=== PATIENT | female | born 1985 | race Native Hawaiian/Other Pacific Islander ===

== ENCOUNTER 2022-05-26 12:30 | Outpatient (RCR) | payer BC, SELFPAY | END 2022-06-23 16:21 | disposition home or self-care (01) | PROVIDERS: Visit Provider Orthopaedic Surgery | DX: M25.572 Pain in left ankle and joints of left foot (principal); R26.9 Unspecified abnormalities of gait and mobility; Z51.89 Encounter for other specified aftercare | CPT/HCPCS: 97110; 97116; 97140 ==

== ENCOUNTER 2024-10-07 14:13 | Outpatient (CLI) | payer BC, SELFPAY | END 2024-10-07 14:14 | disposition home or self-care (01) | LOC: NFLDREF 10-10 08:29 | PROVIDERS: Visit Provider Obstetrics & Gynecology | DX: Z79.899 Other long term (current) drug therapy (principal) | CPT/HCPCS: 82670 ==